=== PATIENT | male | born 1980 | race Hispanic/Latino ===

== ENCOUNTER 2016-11-05 21:24 | Emergency (ER) | payer SELFPAY ==
[~2016-11-05] VITALS: Ht 160 cm; Wt 100.0 kg
[2016-11-05 21:45] VITALS: BP 5/3; PULSE 132; RESP 20; O2SAT 99
--- NOTE | 2016-11-05 21:51 | ED.REPORT ---
HPI-Psychiatric Illness Date of Service Nov 05, 2016 ED Provider: Beverly Johnson MD This is a 36 year old male brought to the emergency department by police after found trying to enter his neighbor's house without their consent. Police state he reported auditory hallucinations, meth use today, and suicidal ideation. Police also report the he has been trying to touch and grab onto people today. On interview in the emergency department, patient reports that he was clean from July until last Sunday. He began using methamphetamine on Sunday and has not slept since then. Last meth use today. He denies suicidal or homicidal ideation. Patient adds that he was trying to break into his neighbor' s house because he heard lots of noise. Patient states he hears his sister, Laura speaking and states she is just outside of the patient room, pt proceeds to call out for her. However, his family members are not present in the ED at this time. Additionally, patient discusses at length that he took a nap today, visited some friends, went to alevism, and went to a bar today. Nursing Notes Stated Complaint: MENTAL EVAL Chief Complaint: Psychiatric Complaint Nursing Notes Reviewed: Yes Allergies: Coded Allergies: No Known Allergies (Unverified , 11/05/16) General Time Seen by MD: 21:44 Chief Complaint Bizarre behavior Hx Obtained From: Police Arrived By: Police Severity: Current: No pain currently Pertinent Negative: Pt denies other symptoms Recent Healthcare: No recent doctor visit, No recent hospitalization Similar Sx Previous: No Risk-Psychiatric Illness Suicide Risk Stratification RF Statements: Risk factors reviewed, No risk factors Past Medical History Past Medical History Denies Ambulatory Status Independent Review of Systems Unable to Obtain ROS Mental status Psychiatric: Reports: Change mental status Physical Exam Initial Vital Signs Vital Signs (First) Date Time Temp Pulse Resp B/P Pulse Ox O2 Delivery O2 Flow Rate FiO2 11/05/16 21:45 37.4 132 20 5/3 99 Room Air Initial VS: Reviewed Head / Eyes: Atraumatic, Normocephalic, PERRL ENT: Mucous membranes moist, Conjunctiva normal, No scleral icterus Neck: Supple, Non-tender, Full range of motion Respiratory: Breath sounds normal, Clear to auscultation, No respiratory distress Cardiovascular: Regular rate & rhythm, Heart sounds normal, Intact distal pulses Extremities: Vascular intact, Neuro intact, No swelling, No tenderness Skin: Warm, Dry, No cyanosis General/Constitutional: Awake Neurologic: No motor deficits Psychiatric: Not suicidal, Not homicidal Abnormal Mood/Affect: Positive: Flight of ideas Abnormal Thinking / Perception: Positive: Hallucinations, auditory Pressured speech, Interpretation & Diagnostics Lab Results Interpretation Result Diagram: 11/05/16221811/05/162218 Test 11/05/16 22:19 11/06/16 00:00 White Blood Count 11.7th/mm3 (3.8-10.1) Red Blood Count 5.81mil/mm3 (4.40-5.80) Hemoglobin 16.9g/dL (13.8-17.2) Hematocrit 48.7% (41.0-50.0) Mean Corpuscular Volume 83.8fL (81-100) Mean Corpuscular Hemoglobin 29.1pg (27.0-35.0) Mean Corpuscular Hemoglobin Concent 34.7% (32.0-37.0) Red Cell Distribution Width 13.0% (12.3-15.4) Platelet Count 354bil/L (150-400) Neutrophils (%) (Auto) 68.9% (40-74) Lymphocytes (%) (Auto) 22.1% (14-46) Monocytes (%) (Auto) 6.9% (4-12) Eosinophils (%) (Auto) 1.0% (0-5) Basophils (%) (Auto) 0.4% (0-3) Sodium Level 138mEq/L (134-144) Potassium Level 3.4mEq/L (3.5-5.2) Chloride Level 98mEq/L (97-108) Carbon Dioxide Level 19mmol/L (18-29) Blood Urea Nitrogen 14mg/dL (6-20) Creatinine 0.71mg/dL (0.76-1.27) Estimat Glomerular Filtration Rate 133mL/min (>59) Glucose Level 103mg/dL (60-99) Calcium Level 10.2mg/dL (8.5-10.1) Total Bilirubin 1.1mg/dL (0.0-1.2) Aspartate Amino Transf (AST/SGOT) 49U/L (0-50) Alanine Aminotransferase (ALT/SGPT) 53U/L (0-44) Alkaline Phosphatase 104U/L (25-150) Total Creatine Kinase 615U/L (21-232) Total Protein 8.7g/dL (6.4-8.4) Albumin 4.5g/dL (3.4-5.0) Thyroid Stimulating Hormone (TSH) 0.673uIU/mL (0.450-4.500) Hold Karimi Top Tube Received (Received) Re-Eval/Medical Decision Med Decision/Clinical Course 36-year-old male with no past medical history brought in by police for bizarre behavior. Differential diagnosis includes but is not limited to methamphetamine abuse versus lack of sleep versus electrolyte abnormality versus need of psychiatric disorder. 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 His labs are unremarkable, and CK is very mildly elevated not requiring IV fluids. Initially, patient was cooperative, but then he left the emergency department, started screaming in the waiting room, and required 4. restraints and chemical restraints. He is to be reassessed in the morning. His care was transferred to Dr.Howard Del Rio. Re-Evaluation/Progress #1: Time of Eval: 00:21 Re-Evaluation/Progress Note: Pt's states agrees that patient has been using methamphetamine since Sunday and has not slept since then. She denies any psychiatric history and adds that his behavior today is very abnormal for him. Re-Evaluation/Progress #2: Time of Eval: 00:47 Re-Evaluation/Progress Note: Patient became agitated and was yelling at the ED entrance. A code perry was called and patient was given Benadryl, ativan and haldol for his own and safety of others. Counseled Regarding: Diagnosis, Lab results, Need for follow-up Discharge & Departure Care Transferred to: Dr. Del Rio Care Transferred at: 03:00 Scribe Attestation Portions of this note were transcribed by Narcisa Cuba. I, Dr. Johnson personally performed the history, physical exam and medical decision-making; I reviewed and confirmed the accuracy of the information in the transcribed note. Signed by: jaspreet Moulton. 11/05/2016, 03:00. Beverly Johnson MD Nov 05, 2016 21:51 NARCISA CUBA Nov 05, 2016 21:54
[2016-11-05 22:32] LABS: BASOPHILS % (AUTO) 0.4 % (0-3); MONOCYTES % (AUTO) 6.9 % (4-12); Mean Corpuscular Hemoglobin 29.1 pg (27.0-35.0); Mean Corpuscular Volume 83.8 fL (81-100); NEUTROPHILS % (AUTO) 68.9 % (40-74); Platelet Count 354 bil/L (150-400)
[2016-11-06] MEDS ORDERED: Haloperidol 5 mg/mL Inj IM PRN (00:40)
[2016-11-06 01:15] VITALS: BP 145/95; PULSE 120; RESP 17; O2SAT 97
[2016-11-06 05:44] VITALS: BP 107/76; PULSE 89; RESP 17; O2SAT 99
[2016-11-06 07:51] VITALS: BP 110/79; PULSE 99; RESP 18; O2SAT 97
== END 2016-11-06 08:04 | disposition home or self-care (01) ==
LOC: SED 21:24
DX: F43.0 Acute stress reaction (principal); F19.10 Other psychoactive substance abuse, uncomplicated
CPT/HCPCS: 36415; 80053; 82075; 82550; 84443; 85025; 96372; 99284; J1200; J1630; J2060